=== PATIENT | female | born 1960 | race Two or more races ===

== ENCOUNTER 2017-11-24 09:11 | Outpatient (CLI) | payer OTHER ==
--- NOTE | 2017-11-24 14:33 | Diagnostic Imaging Report ---
Indication:Abdominal pain Technique: Grayscale and duplex Doppler imaging of the abdomen performed. Comparison: None Findings: Liver is echogenic consistent with fatty infiltration. The demonstrated part of the pancreas, gallbladder, aorta and IVC, both kidneys, spleen appear unremarkable. There is no biliary ductal dilatation identified. Doppler evaluation of the main portal vein shows patency. There is no ascites. No hydronephrosis seen. CBD is 5 mm. Impression: Mild fatty liver. Negative exam otherwise
== END 2017-11-24 12:11 | disposition home or self-care (01) ==
LOC: ULS 09:11
DX: R10.11 Right upper quadrant pain (principal); K76.0 Fatty (change of) liver, not elsewhere classified
CPT/HCPCS: 76700